=== PATIENT | female | born 1995 | race Caucasian/White ===

== ENCOUNTER 2019-09-01 21:55 | Emergency (ER) | payer MEDICAID ==
[~2019-09-01] VITALS: Ht 154.9 cm; Wt 49.9 kg
[~2019-09-01 21:55] MED LIST: PREN-385 PO
[2019-09-01 22:03] VITALS: BP 116/74
--- NOTE | 2019-09-01 22:10 | NUR ---
PT AMBULATED TO BED #9
[2019-09-01 22:15] VITALS: BP 116/74
--- NOTE | 2019-09-01 22:15 | NUR ---
23 Y/O F PRESENTS TO ED WITH C/O PELVIC PAIN X2 WEEKS. PT REPORTS HAVING IUD PLACED IN 2017 AND RECENTLY SHE FELT A SHIFT IN THE IUD. C/O NON-RADITING PINCHING PAIN. PT REPORTS INTERMINTENT SPOTTING AND ABNORMAL CYCLE DUE TO IUD. PT PLACED IN GOWN. BEDRAIL X1 UP. WILL CONTINUE TO MONITOR.
--- NOTE | 2019-09-01 22:45 | NUR ---
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
--- NOTE | 2019-09-01 22:45 | NUR ---
CHAPERONED DR. ALVARADO FOR PELVIC EXAM
[2019-09-01] MEDS ORDERED: AZITHROMYCIN 250 MG TAB PO ONE (22:50)
[2019-09-01] MEDS ORDERED: cefTRIAXone 1,000 MG in LIDOCAINE MPF 1% 2.1 ML IM ONE (22:50)
[2019-09-01 23:00] LABS: APPEARANCE,URINE CLEAR (CLEAR); BILIRUBIN,URINE NEGATIVE (NEGATIVE); BLOOD, URINE TRACE-I (NEGATIVE); COLOR,URINE YELLOW (YELLOW); LEUKOCYTE ESTERASE ,URINE NEGATIVE (NEGATIVE); NITRITE, URINE NEGATIVE (NEGATIVE); UGLUCOSE NEGATIVE (NEGATIVE)
--- NOTE | 2019-09-01 23:07 | NUR ---
Patient discharged with v/s stable. Written and verbal after care instructions given by Dr. Pineda. Patient alert, oriented and verbalized understanding of instructions. Ambulatory with steady gait. All questions addressed prior to discharge. ID band removed. Patient advised to follow up with PMD. Rx of doxyclycline given. Patient educated on indication of medication including possible reaction and side effects. Opportunity to ask questions provided and answered.
[2019-09-01 23:13] LABS: RBC,URINE 0-5 /HPF (0-5); WBC,URINE 0-5 /HPF (0-5)
[2019-09-04 06:07] LABS: CHLAMYDIA TRACHOMATIS AMP DNA Negative (Negative)
== END 2019-09-01 23:07 | disposition home or self-care (01) ==
LOC: MED 21:55
DX: N76.0 Acute vaginitis (principal); J45.909 Unspecified asthma, uncomplicated; F17.200 Nicotine dependence, unspecified, uncomplicated; F12.90 Cannabis use, unspecified, uncomplicated; Z79.899 Other long term (current) drug therapy
CPT/HCPCS: 36415; 81001; 81025; 87210; 96372; 99283; J0696; J2001; 87491